=== PATIENT | female | born 1985 | race Caucasian/White ===

== ENCOUNTER 2016-12-08 23:35 | Inpatient (IN) | payer BC ==
[~2016-12-08] VITALS: Ht 160 cm; Wt 77.5 kg
[~2016-12-08 23:35] MED LIST: Motrin PO; Natalcare Rx,Pramile PO; Percocet 5/325,Endoc PO
[2016-12-08 23:45] VITALS: BP 134/75
[2016-12-09] VITALS (27 sets, daily range): BP systolic 95–123; BP diastolic 53–80
[2016-12-09 00:49] LABS: EOSINOPHIL (%) 0.4 % (0-5); HEMATOCRIT 33.8 % (36.0-46.0); IMMATURE GRANULOCYTE (%) 0.9 % (0.0-0.7); IMMATURE GRANULOCYTE COUNT 0.1 K/uL; INSTRUMENT ABS NEUTROPHIL CT 7.3 K/uL; LYMPHOCYTE COUNT 2.4 K/uL (1.0-2.8); MCHC 32.5 G/DL (30.0-36.0); MEAN PLAT.VOLUME 9.8 uM^3 (9.5-12.4); MONOCYTE (%) 7.6 % (3-12); MONOCYTE COUNT 0.8 K/uL (0-0.8); NEUTROPHIL (%) 68.6 % (45-76); NEUTROPHIL COUNT 7.3 K/uL (1.8-6.4); PLATELET COUNT 329 K/uL (156-360); RBC DIS.WIDTH-CV 13.3 % (11.8-14.6); RBC DIS.WIDTH-SD 41.3 % (39-53); RED BLOOD COUNT 3.93 M/uL (3.80-5.20); WHITE BLOOD COUNT 10.6 K/uL (4.1-10.2)
[2016-12-09] MEDS ORDERED: Motrin PO (16:19)
[2016-12-10 07:46] VITALS: BP 99/66
[2016-12-10 15:11] VITALS: BP 115/68
== END 2016-12-10 19:10 | disposition home or self-care (01) | DRG 775 ==
LOC: LDRP-OP 23:35 → 2WEST 23:36 → LDRP-OP 01-19 09:36
PROVIDERS: Nurse Practitioner
PROC: 10907ZC Drainage of Amniotic Fluid, Therapeutic from Products of Conception, Via Natural or Artificial Opening (ICD-10-PCS; principal; 2016-12-09)
PROC: 10E0XZZ Delivery of Products of Conception, External Approach (ICD-10-PCS; principal; 2016-12-09)
PROC: 0HQ9XZZ Repair Perineum Skin, External Approach (ICD-10-PCS; principal; 2016-12-09)
PROC: 00HU33Z Insertion of Infusion Device into Spinal Canal, Percutaneous Approach (ICD-10-PCS; principal; 2016-12-09)
PROC: 3E0R3CZ (ICD-10-PCS; principal; 2016-12-09)
DX: O42.02 Full-term premature rupture of membranes, onset of labor within 24 hours of rupture (principal); Z3A.38 38 weeks gestation of pregnancy; O70.0 First degree perineal laceration during delivery; Z37.0 Single live birth
CPT/HCPCS: 85025; C1755; G0378; J3010; J7120; S0020